=== PATIENT | female | born 1985 | race Hispanic/Latino ===

== ENCOUNTER 2019-09-02 15:35 | Inpatient (IN) ==
[2019-09-02 15:48] LABS: URINE SOURCE VOIDED
[2019-09-02 16:03] LABS: BILIRUBIN URINE NEGATIVE (NEGATIVE); BLOOD URINE MODERATE (NEGATIVE); COLOR YELLOW; GLUCOSE URINE NEGATIVE (NEGATIVE); KETONE URINE 60 mg/dL (NEGATIVE); LEUKOCYTES URINE TRACE (NEGATIVE); NITRITE URINE NEGATIVE (NEGATIVE); PH URINE 6.5; PROTEIN URINE 30 mg/dL (NEGATIVE); SP GRAVITY URINE 1.026; TURBIDITY URINE HAZY (CLEAR); UROBILINOGEN URINE 2 mg/dL (NORMAL)
[2019-09-02] MEDS ORDERED: PEPCID PO PRN (16:18)
[2019-09-02] MEDS ORDERED: PEPCID PO ONE (16:18)
[2019-09-02] MEDS ORDERED: ZOFRAN IV PRN (16:18)
[2019-09-02] MEDS ORDERED: KEFZOL 1 GM/D5W 1 GM/50 ML IVPB IV PRN (16:18)
[2019-09-02] MEDS ORDERED: STADOL IV PRN (16:18)
[2019-09-02] MEDS ORDERED: AMPICILLIN 2 GM in NS 100 ML IV ONE (16:18)
[2019-09-02] MEDS ORDERED: TYLENOL PO PRN (16:18)
[2019-09-02] MEDS ORDERED: REGLAN PO ONE (16:18)
[2019-09-02] MEDS ORDERED: PEPCID IV PRN (16:18)
[2019-09-02] MEDS ORDERED: PITOCIN 30 UNITS/NS 30 UNIT/500 ML IV.SOLN IV SCH ×2 (16:30→17:15)
[2019-09-02] MEDS ORDERED: SODIUM CHLORIDE 0.9% INJ SCH (16:30)
[2019-09-02] MEDS ORDERED: LR 1,000 ML IV SCH (16:30)
[2019-09-02 16:46] LABS: BASO# 0.03 X1000 (0.0-0.2); BASO% 0.3 % (0.0-0.8); EOS# 0.04 X1000 (0.0-0.7); EOS% 0.3 % (0.0-10.0); HEMATOCRIT 33.9 % (37.0-47.0); HEMOGLOBIN 11.2 g/dL (12.0-16.0); IMM GRAN# 0.03 X1000 (0.0-0.04); IMM GRAN% 0.3 % (0.0-0.5); LYMPH# 1.38 X1000 (1.2-3.4); LYMPH% 11.9 % (20.5-51.1); MCH 28.7 PG (27-31); MCV 86.9 FL (81-99); MONO# 0.56 X1000 (0.11-0.59); MONO% 4.8 % (1.7-9.3); NEUT% 82.4 % (42.2-75.2); PLT 238 X1000 (130-400); RDW 13.4 % (11.5-14.5); WBC 11.64 X1000 (4.8-10.8)
[2019-09-02] MEDS ORDERED: XYLOCAINE-MPF 1% INJ ONE (16:47)
[2019-09-02] MEDS ORDERED: XYLOCAINE-MPF 1% INJ PRN (17:14)
[2019-09-02] MEDS ORDERED: BOOSTRIX VACCINE IM ONE (17:14)
[2019-09-02] MEDS ORDERED: BENADRYL IV PRN (17:14)
[2019-09-02] MEDS ORDERED: BENADRYL PO PRN (17:14)
[2019-09-02] MEDS ORDERED: M-M-R II VACCINE SUBQ ONE (17:14)
[2019-09-02] MEDS ORDERED: PITOCIN 20 UNITS/NS 20 UNITS/1,000 ML IV.SOLN IV SCH (17:15)
[2019-09-02] MEDS: MOTRIN PO PRN (18:17)
[2019-09-02] MEDS ORDERED: AMPICILLIN 1 GM in NS 50 ML IV SCH (20:20)
--- NOTE | 2019-09-02 20:42 | OPERATIVE NOTE ---
PROCEDURE DATE: 09/02/2019 PRESENTING HISTORY: Patient is a 34-year-old G6 who presented to labor and delivery at 5 cm dilated. No care. The patient, however, appeared term. PAST MEDICAL/OBSTETRICAL HISTORY: She denied any past medical problems or any problems with . DELIVERY SUMMARY: She progressed adequately from 5 cm to complete and delivered a viable female , Apgars 10 and 10, weight 6 pounds 7 ounces, with a 1-degree laceration that was not repaired. The uterus is firm, and Pitocin was used . No complications. Mom was discharged to recovery, and infant to the nursery. cc: Libra Mckenzie MD
[2019-09-02] MEDS: PERICOLACE PO SCH (21:15)
--- NOTE | 2019-09-03 07:21 | OB/GYN PROGRESS NOTE ---
- Subjective PPD#1, no complaints OB Physical Exam Vital Signs - 8 hr 09/02/19 23:48 09/03/19 04:06 Temperature 96.1 F L Pulse Rate 64 61 Respiratory Rate 18 16 Blood Pressure 100/52 101/52 O2 Sat by Pulse Oximetry 98 97 - CONSTITUTIONAL General Appearance: appears well - EYES Eyes: PERRL/EOMI - HEAD, EARS, NOSE, MOUTH & THROAT HENMT: normocephalic/atraumatic - NECK Neck: full range of motion - RESPIRATORY Respiratory: no respiratory distress - CARDIOVASCULAR Cardiovascular: regular rate, rhythm - GASTROINTESTINAL (ABDOMEN) Abdominal Exam: other (benign, no tenderness, uterus firm) - GENITOURINARY Female Genitalia/Pelvic Exam: deferred - SKIN Integumentary: normal color - NEUROLOGIC Neurologic: grossly normal - PSYCHIATRIC Psych/Mental Status: normal mood/affect Active Medications Generic Name Dose Route Start Last Admin Trade Name Freq PRN Reason Stop Dose Admin Acetaminophen 650 mg 09/02/19 16:18 Tylenol PO Q4-6H PRN PRN Headache Diphenhydramine HCl 25 mg 09/02/19 17:14 Benadryl PO Q4H PRN PRN Itching Diphenhydramine HCl 12.5 mg 09/02/19 17:14 Benadryl IV Q4H PRN PRN Itching Famotidine 40 mg 09/02/19 16:18 Pepcid PO Q12H PRN PRN GI upset or indigestion Lactated Ringer's 1,000 mls @ 0 mls/hr 09/02/19 16:30 09/02/19 16:40 Lr IV 125 mls/hr .Q0M ROBIN Administration As Directed Oxytocin/Sodium Chloride 20 units in 1,000 mls @ 0 mls/hr 09/02/19 17:15 09/02/19 18:05 Pitocin 20 Units/Ns IV 125 mls/hr .Q0M ROBIN Administration As Directed Ibuprofen 800 mg 09/02/19 17:14 09/02/19 18:17 Motrin PO 800 mg Q8H PRN PRN Administration cramping Ondansetron HCl 4 mg 09/02/19 16:18 Zofran IV PRN PRN Nausea Senna/Docusate Sodium 1 each 09/02/19 21:00 09/02/19 21:15 Pericolace PO Not Given QHS [facility] Sodium Chloride 5 - 10 ml 09/02/19 16:30 Sodium Chloride 0.9% INJ DIRECTED [facility] Laboratory Results - last 24 hr 09/02/19 09/02/19 09/02/19 15:40 16:40 16:40 WBC 11.64 H RBC 3.90 L Hgb 11.2 L Hct 33.9 L MCV 86.9 MCH 28.7 MCHC 33.0 RDW Std Deviation 13.4 Plt Count 238 MPV 11.0 H Immature Gran % (Auto) 0.3 Neut % (Auto) 82.4 H Lymph % (Auto) 11.9 L [place] % (Auto) 4.8 Eos % (Auto) 0.3 Baso % (Auto) 0.3 Immature Gran # (Auto) 0.03 Neut # (Auto) 9.60 H Lymph # (Auto) 1.38 [place] # (Auto) 0.56 Eos # (Auto) 0.04 Baso # (Auto) 0.03 Urine Source VOIDED Urine Color YELLOW Urine Turbidity HAZY Urine pH 6.5 Ur Specific [place] 1.026 Urine Protein 30 A Ur Glucose (Stick) NEGATIVE Ur Ketones (Stick) 60 A Urine Blood MODERATE A Urine Nitrite NEGATIVE Urine Bilirubin NEGATIVE Urobilinogen Dipstick 2 A Urine Leukocytes TRACE A RPR NON-REACTIVE OB Assessment & Plan (1) Normal course Status: Acute Plan: routine care
[2019-09-03] MEDS: MOTRIN PO PRN ×2 (08:02→23:20)
[2019-09-03 08:48] LABS: BASO# 0.02 X1000 (0.0-0.2); BASO% 0.2 % (0.0-0.8); EOS# 0.13 X1000 (0.0-0.7); EOS% 1.4 % (0.0-10.0); HEMATOCRIT 32.1 % (37.0-47.0); HEMOGLOBIN 10.3 g/dL (12.0-16.0); IMM GRAN# 0.04 X1000 (0.0-0.04); IMM GRAN% 0.4 % (0.0-0.5); LYMPH# 1.43 X1000 (1.2-3.4); LYMPH% 15.4 % (20.5-51.1); MCH 28.1 PG (27-31); MCHC 32.1 g/dL (33-37); MCV 87.7 FL (81-99); MONO# 0.69 X1000 (0.11-0.59); MONO% 7.4 % (1.7-9.3); MPV 11.3 FL (7.4-10.4); NEUT# 6.96 X1000 (1.4-6.5); NEUT% 75.2 % (42.2-75.2); PLT 204 X1000 (130-400); RBC 3.66 XMIL (4.2-5.4); RDW 13.5 % (11.5-14.5); WBC 9.27 X1000 (4.8-10.8)
[2019-09-03] MEDS ORDERED: DURAMORPH ONE (10:43)
[2019-09-03] MEDS ORDERED: ZOFRAN ONE (11:10)
[2019-09-03] MEDS ORDERED: PITOCIN ONE (11:11)
[2019-09-03] MEDS ORDERED: TORADOL ONE (11:11)
[2019-09-03] MEDS: PERICOLACE PO SCH (23:20)
--- NOTE | 2019-09-04 06:53 | OB/GYN PROGRESS NOTE ---
- Subjective Pt seen and examined. Currently w/o complaints. Ambulating and urinating w/o difficulty. +Bottle feeding, decreased lochia. Denies fever, chills, n/v OB Physical Exam Vital Signs - 8 hr 09/03/19 23:16 Temperature 96.8 F L Pulse Rate 72 Respiratory Rate 18 Blood Pressure 111/56 O2 Sat by Pulse Oximetry 99 - CONSTITUTIONAL General Appearance: appears well, alert, no apparent distress - RESPIRATORY Respiratory: lungs clear - CARDIOVASCULAR Cardiovascular: regular rate, rhythm - GASTROINTESTINAL (ABDOMEN) Abdominal Exam: non tender, soft (FF below umbilicus) - MUSCULOSKELETAL Extremity: no calf tenderness - PSYCHIATRIC Psych/Mental Status: normal mood/affect, oriented x 3 Active Medications Generic Name Dose Route Start Last Admin Trade Name Freq PRN Reason Stop Dose Admin Acetaminophen 650 mg 09/02/19 16:18 Tylenol PO Q4-6H PRN PRN Headache Diphenhydramine HCl 25 mg 09/02/19 17:14 Benadryl PO Q4H PRN PRN Itching Famotidine 40 mg 09/02/19 16:18 Pepcid PO Q12H PRN PRN GI upset or indigestion Ibuprofen 800 mg 09/02/19 17:14 09/03/19 23:20 Motrin PO 800 mg Q8H PRN PRN Administration cramping Senna/Docusate Sodium 1 each 09/02/19 21:00 09/03/19 23:20 Pericolace PO 1 each QHS ROBIN Administration Laboratory Results - last 24 hr 09/03/19 08:13 WBC 9.27 RBC 3.66 L Hgb 10.3 L Hct 32.1 L MCV 87.7 MCH 28.1 MCHC 32.1 L RDW Std Deviation 13.5 Plt Count 204 MPV 11.3 H Immature Gran % (Auto) 0.4 Neut % (Auto) 75.2 Lymph % (Auto) 15.4 L [place] % (Auto) 7.4 Eos % (Auto) 1.4 Baso % (Auto) 0.2 Immature Gran # (Auto) 0.04 Neut # (Auto) 6.96 H Lymph # (Auto) 1.43 [place] # (Auto) 0.69 H Eos # (Auto) 0.13 Baso # (Auto) 0.02 OB Assessment & Plan (1) Vaginal delivery Status: Acute Plan: 34yo PPD#2 s/p -Pain well controlled -HD stable -oob to ambulation -reg diet -declined PP contraception -Advised no coitus x 6 weeks -plan for d/c home today -f/u in 6 weeks for PP visit
[2019-09-04 07:23] VITALS: BP 116/62
== END 2019-09-04 12:10 | disposition home or self-care (01) | DRG 807 ==
LOC: NBC 15:35 → LD 15:36
PROVIDERS: ADMIT Specialist; ATTEND Specialist